=== PATIENT | female | born 1985 | race Caucasian/White ===

== ENCOUNTER 2020-02-26 21:39 | Emergency (ER) | payer OTHER, SELFPAY ==
--- NOTE | ~2020-02-26 | XR_ITS ---
EXAMINATION: XR chest 2V DATE: 02/26/2020 22:11 INDICATION: Midsternal chest pain. TECHNIQUE: Frontal and lateral views of the chest were obtained. COMPARISON: None. FINDINGS: The chest demonstrates clear lungs without pneumonia, pleural effusion, or pneumothorax. Th e heart size is normal. Surgical clips in the right upper quadrant are likely from cholecystectomy. IMPRESSION: 1. No acute cardiopulmonary disease. Reviewed, dictated and finalized at location A.
[2020-02-26 21:43] VITALS: BP 206/99; PULSE 98; RESP 22; TEMP 36.3; O2SAT 100
--- NOTE | 2020-02-26 21:46 | ECG_ITS ---
Measurements Intervals [place] Rate: 92 P: 66 [place]: 166 QRS: 14 QRSD: 100 T: 46 QT: 335 QTc: 416 Interpretive Statements SINUS RHYTHM INCOMPLETE RIGHT BUNDLE BRANCH BLOCK BORDERLINE ST-T WAVE ABNORMALITY- ANTERIOR LEADS BASELINE WANDER- III, AVF, V4-V6 BORDERLINE ECG Electronically Signed On 02-27-2020 7:01:05 CDT by Patrick Mathews D.O.
[2020-02-26 21:47] VITALS: PULSE 99
--- NOTE | 2020-02-26 21:48 | ED.CHESTPAIN ---
HPI - Chest Pain General Chief Complaint: Chest Pain Stated Complaint: SHOOTING HEART PAIN Time Seen by Provider: 02/26/20 21:46 Source: patient Mode of arrival: ambulatory Limitations: no limitations History of Present Illness HPI narrative: Patient is a 34-year-old female who presents for evaluation of chest pain. Pain began approximately 2 hours ago, described in the center of her chest as sharp, stabbing in nature with radiation to the back. No jaw, shoulder, arm pain. No lower flank pain. No ripping or tearing sensation. Patient had associated diaphoresis, nausea, denies any current shortness of breath mild pleuritic type pain. No leg swelling, pain or history of blood clot. No recent car or air travel. No recent history of surgeries. No family history of blood clot. Patient states that she is well besides being obese. She does not smoke. Positive family history of heart disease. Related Data Allergies Allergy/AdvReac Type Severity Reaction Status Date / Time sulfamethoxazole Allergy Mild Unknown Verified 02/26/20 21:48 trimethoprim Allergy Mild Unknown Verified 02/26/20 21:48 Review of Systems Review of Systems: Narrative: CONSTITUTIONAL: Denies fever, reports feeling sweaty EYES: Denies visual changes, redness, or discharge. ENT: Denies rhinorrhea, congestion, sore throat, or otalgia. CARDIOVASCULAR: Reports chest pain, denies palpitations, denies edema RESPIRATORY: Denies cough or dyspnea. GASTROINTESTINAL: Denies abdominal pain, reports nausea, denies vomiting GENITOURINARY: Denies dysuria or hematuria. SKIN: Denies rash or itching. MUSCULOSKELETAL: Denies back pain, joint pain, or myalgia. NEUROLOGIC: Denies headache, numbness, or weakness. [facility] Past Medical History Medical History (Updated 02/27/20 @ 01:21 by Spring Mitchell MD) Obesity Surgical History Surgical History (Updated 02/26/20 @ 22:06 by Spring Mitchell MD) H/O section Hx of cholecystectomy Social History Social History (Updated 02/26/20 @ 22:06 by Spring Mitchell MD) Smoking status: Never smoker Alcohol intake: current Substance use: never Living arrangements: with family Gender identity (if verbalized by the patient): Female Exam Narrative: Exam Narrative: GENERAL: Awake, alert, conversant HEAD: Normocephalic, atraumatic. EYES: PERRLA and EOMI. ENT: Nares clear, no rhinorrhea or epistaxis. Mucous membranes moist. NECK: Supple. CHEST: No respiratory distress, breathing even and non labored, no chest wall tenderness HEART: Regular rate, sinus rhythm ABDOMEN:Non distended, non tender EXTREMITIES: Normal range of motion. No edema. SKIN: Warm, dry, no rash. NEURO:No focal deficits. Alert and oriented x3 Course Vital Signs Vital signs: Vital Signs Temperature 36.3 C L 02/26/20 21:43 Pulse Rate 98 02/26/20 21:43 Respiratory Rate 22 H 02/26/20 21:43 Blood Pressure 206/99 H 02/26/20 21:43 Pulse Oximetry 100 02/26/20 21:43 Temperature 36.3 C L 02/26/20 21:43 Pulse Rate 80 02/27/20 00:51 Respiratory Rate 20 02/27/20 00:51 Blood Pressure 139/87 02/27/20 00:51 Pulse Oximetry 98 02/27/20 00:51 MDM - Chest Pain MDM Narrative Medical decision making narrative: Patient presented for evaluation of chest pain. Pain does not seem quite seem consistent with ACS, patient young without other severe risk factors. She is hypertensive at the time of arrival, but I think that this is an unreliable blood pressure is is downtrending over time without use of any medication. Patient's EKG and labs are without significant high risk changes. Cardiac risk factors reviewed. Patient is felt low risk for ACS and reasonable for further risk stratification testing as an outpatient. Pain was not sudden or maximal or onset without tearing or ripping quality. No other signs or symptoms to suggest aortic dissection. A low risk well's criteria is noted, PE is felt to be unlikely. No pneumonia seen o
[2020-02-26 21:49] VITALS: PULSE 92; RESP 28; O2SAT 100
[2020-02-26 21:57] LABS: Basophils Absolute Auto 0.1 K/mm3 (0.0-0.1); Basophils Percent Auto 0.8 % (0.2-1.2); Eosinophils Absolute Auto 0.2 K/mm3 (0-0.3); Hematocrit 40.3 % (37.0-47.0); Hemoglobin 13.8 g/dL (12.0-15.0); Immature Granulocyte Absolute 0.05 K/mm3 (0.00-0.031); Immature Granulocyte Percent A 0.5 % (0-0.5); Lymphocytes Absolute Auto 2.19 K/mm3 (0.9-3.2); Lymphocytes Percent Auto 21.5 % (18.3-44.2); Mean Corpuscular HGB Conc 34.2 g/dl (32-36); Mean Corpuscular Hemoglobin 32.4 pg (26-34); Mean Corpuscular Volume 94.6 fl (80-100); Mean Platelet Volume 9.6 fl (7.4-10.4); Monocytes Absolute Auto 0.7 K/mm3 (0.1-0.6); Monocytes Percent Auto 6.7 % (2.6-8.5); Neutrophils Percent Auto 68.5 % (45.5-73.1); Platelet Count Result 319 k/mm3 (150-375); Red Blood Count 4.26 M/mm3 (4.2-5.4); Red Cell Distribution Width 13.2 % (11.5-14.5); White Blood Count 10.2 K/mm3 (4.5-10.0)
[2020-02-26 22:07] LABS: Prothrombin Time 13.2 Seconds (11.1-14.7)
[2020-02-26 22:08] LABS: Blood Urea Nitrogen 13 mg/dL (7-17); Calcium 9.2 mg/dL (8.4-10.2); Carbon Dioxide 25 mmol/L (22-30); Chloride 104 mmol/L (98-107); Estimated CRCL calculation 132 ml/min; Estimated Glomerular Filt Rate > 60; Glucose 117 mg/dL (65-105); Partial Thromboplastin Time 30.7 SECONDS (22.3-36.8); Potassium 4.1 mmol/L (3.4-5.0); Sodium 136 mmol/L (137-145)
[2020-02-26] MEDS: ONDANSETRON INJ 4 MG/2 ML VIAL IV PUSH (22:16)
[2020-02-26] MEDS: ASPIRIN 81 MG CHEWABLE TABLET 324 MG PO (22:16)
[2020-02-26] MEDS: BELLADONNA ALK/PHENOB ELIX 10 ML, MAG HYDROX/ALUMINUM HYD/SIMETH 30 ML, LIDOCAINE HCL 2... PO (22:17)
[2020-02-26] MEDS: ACETAMINOPHEN 500 MG TABLET 1000 MG PO (22:17)
[2020-02-26] MEDS: SODIUM CHLORIDE 0.9% IV 500 ML 999 ML IV CONT (22:18)
[2020-02-26 22:20] LABS: Troponin I < 0.012 ng/mL (0.000-0.034)
[2020-02-26 22:21] VITALS: BP 155/90; PULSE 81; RESP 20; O2SAT 98
[2020-02-26 22:21] LABS: D Dimer < 0.22 ug/mL (<0.48)
[2020-02-26 23:36] VITALS: BP 139/79; PULSE 80; RESP 18; O2SAT 100
[2020-02-27 00:51] VITALS: BP 139/87; PULSE 80; RESP 20; O2SAT 98
[2020-02-27 01:13] LABS: Troponin I < 0.012 ng/mL (0.000-0.034)
[2020-02-27 01:52] VITALS: BP 134/77; PULSE 72; RESP 18; O2SAT 98
== END 2020-02-27 01:53 | disposition home or self-care (01) ==
PROVIDERS: Emergency Provider Emergency Medicine
DX: R07.89 Other chest pain (principal); I45.10 Unspecified right bundle-branch block; R94.31 Abnormal electrocardiogram [ECG] [EKG]
CPT/HCPCS: 36415; 71046; 80048; 84484; 85025; 85380; 85610; 85730; 93005; 96361; 96374; 99284; A9270; J2405; J7040